=== PATIENT | female | born 1970 | race Caucasian/White ===

== ENCOUNTER → 2016-08-22 | Outpatient (CLI) | payer OTHER ==
[~2016-08-22] MED LIST: ARMO150T4 PO; ARMO250T5 PO; ATEN50TA8 PO; BACL10TA PO; DOXE50CA3 PO; FROV2.5T5 PO; HYDR-4079 PO; LEVOIUD; PANT1TAB48 PO; SPIR25TA PO; SUCR1TAB PO
== END | disposition home or self-care (01) ==
LOC: C.PAPS 12:58
PROVIDERS: ATTEND Obstetrics & Gynecology
DX: Z12.4 Encounter for screening for malignant neoplasm of cervix (principal)

== ENCOUNTER → 2016-09-07 | Outpatient (CLI) | payer OTHER ==
--- NOTE | 2016-09-11 13:33 | MAMMOGRAPHY REPORT ---
BILATERAL DIGITAL SCREENING MAMMOGRAM TOMOSYNTHESIS WITH CAD: 09/07/2016 CLINICAL HISTORY: Routine screening. Patient has no complaints. TECHNIQUE: Breast tomosynthesis in addition to standard 2D mammography was performed. Current study was also evaluated with a Computer Aided Detection (CAD) system. COMPARISON: Comparison is made to exam dated: 06/24/2014 mammogram - [facility]. BREAST COMPOSITION: The tissue of both breasts is extremely dense, which lowers the sensitivity of mammography. FINDINGS: No suspicious masses, calcifications, or areas of architectural distortion are noted in e ither breast. There has been no significant interval change compared to prior exams. Scattered bilat eral benign-appearing calcifications are not significantly changed. IMPRESSION: ACR BI-RADS CATEGORY 2: BENIGN There is no mammographic evidence of malignancy. A 1 year screening mammogram is recommended. The p atient will receive written notification of the results. Approximately 10% of breast cancers are not detected with mammography. A negative mammographic repor t should not delay biopsy if a clinically suggestive mass is present. Adalgisa Fischer M.D. ah/:09/08/2016 16:12:05 Box Maker Paperboard: [place], [facility] letter sent: Normal 1/2 BI-RADS Code: ACR BI-RADS Category 2: Benign
== END | disposition home or self-care (01) ==
LOC: C.MAMM 10:07
PROVIDERS: ATTEND Obstetrics & Gynecology
DX: Z12.31 Encounter for screening mammogram for malignant neoplasm of breast (principal)

== ENCOUNTER → 2016-11-16 | Outpatient (CLI) | payer OTHER ==
[2016-11-17 11:36] LABS: URINE APPEARANCE TURBID (CLEAR); URINE BILIRUBIN NEG (NEG); URINE COLOR YELLOW; URINE NITRITE NEG (NEG); URINE SPECIFIC GRAVITY 1.028 (1.000-1.030); UROBILINOGEN NEG (NEG)
[2016-11-17 11:39] LABS: MANUAL MICROSCOPIC REQUIRED? NO; REVIEW REQ? NO
--- NOTE | 2016-11-24 12:14 | CODING QUERY MEDICAL NECESSITY ---
CQSUPPORTING DIAGNOSIS NEEDED A supporting diagnosis is required for the test/procedure performed on this patient in order for us to be reimbursed by the patient's insurance. Please provide a supporting diagnosis for the following test/procedure listed below next to the test name along with your signature. *If there is no additional diagnosis for this patient that would support the following test/procedure please document that below next to the test/procedure. Test(s)/Procedure(s) that require a supporting diagnosis: DOS 11/16/16 URINE CULTURE Provider Signature: Date: Thank you [place] [email or web address] Once completed, please kindly fax back to [phone] For questions please call [phone]
== END | disposition home or self-care (01) ==
LOC: C.PAPS 11:02
PROVIDERS: ATTEND Family Medicine
DX: M54.5 Low back pain (principal)

== ENCOUNTER 2017-01-17 21:31 | Emergency (ER) | payer OTHER ==
[~2017-01-17] VITALS: Ht 160 cm; Wt 58.7 kg
[2017-01-17 21:35] VITALS: TEMP 36.5; Ht 160 cm; Wt 58.7 kg
[2017-01-17] MEDS ORDERED: LORAZEPAM 2 MG/ML 1 ML VIAL IV STA (22:48)
[2017-01-17] MEDS ORDERED: SODIUM CHLORIDE 0.9% 1000ML 1,000 ML IV STA (22:48)
[2017-01-17] MEDS ORDERED: ONDANSETRON INJ 2 MG/ML 2 ML VIAL IV STA (22:48)
--- NOTE | 2017-01-17 23:02 | EMERGENCY ROOM VISIT NOTE ---
History Report prepared by Ragini: Bernard Santiago Under the Supervision of: Dr. Nichol Osborn M.D. First contact with patient: 22:35 Chief Complaint: DIZZY Stated Complaint: DIZZY History of Present Illness The patient is a 46 year old female who presents to the Emergency Room with complaints of constant dizziness beginning prior to arrival. The patient states that when she closes her eye, her vision does not "shut off," and she continues to see things. She notes that she has had symptoms like this before. The patient reports that she is also lightheaded. She states that she is hypoglycemic and consumed a large amounts of glucose tablets prior to arrival. The patient's reports that her breath has been shorter and shallower. Source of History: patient Onset: prior to arrival Position: other (global) Quality: other (dizziness) Timing: constant Note: Associated symptoms: lightheadedness Review of Systems See HPI for pertinent positives & negatives. A total of 10 systems reviewed and were otherwise negative. Past Medical & Surgical Medical Problems: (1) fibramyalgia (2) gastric bypass surgery (3) Headache (4) Narcolepsy Family History Cancer Gallbladder disease Heart disease Hypertension Social History Smoking Status: Never Smoker (1 pack a day) Drug Use: none Marital Status: , in relationship Housing Status: lives with family Occupation Status: unemployed Current/Historical Medications Scheduled Armodafinil (Nuvigil), 150 MG PO WITH LUNCH Armodafinil (Nuvigil), 250 MG PO QAM Atenolol (Tenormin), 50 MG PO BID Baclofen (Lioresal), Unknown Dose PO TID Doxepin (Sinequan), 50 MG PO HS Levonorgestrel (Iud) (Mirena), 1 UD Pantoprazole (Protonix), 40 MG PO BID Spironolactone (Aldactone), 50 MG PO BID Scheduled PRN Frovatriptan Succinate (Frova), 2.5 MG PO UD PRN for HEADACHE Hydrocodone/Acetaminophen 10MG/325MG ([place] 10MG/325MG), 1 TAB PO QID PRN for Pain Sucralfate (Sucralfate), 1 GM PO ACHS PRN for GI Upset Allergies Coded Allergies: Azithromycin (Verified Allergy, Mild, 12/15/13) Sumatriptan (Verified Allergy, Mild, 12/10/13) Miconazole (Verified Allergy, Unknown, SWELLING, 04/07/15) Nortriptyline (Verified Allergy, Unknown, ?, 12/10/13) Venlafaxine (Unverified Adverse Reaction, Intermediate, GI SYMPTOMS, ) EYES DILATE Physical Exam Vital Signs Date Time Temp Pulse Resp B/P (MAP) Pulse Ox O2 Delivery O2 Flow Rate FiO2 01/18/17 00:56 71 14 104/58 99 01/17/17 23:41 63 16 109/70 100 Room Air 64 106/72 67 114/75 01/17/17 21:35 36.5 64 18 114/68 100 Room Air Physical Exam Vital signs reviewed. General: Well-appearing, in no significant distress. HEENT: No scleral icterus, PERRLA, neck supple. Atraumatic. Cardiovascular: Regular rate and rhythm, no extra sounds. Pulmonary: Clear to auscultation bilaterally, normal work of breathing. Abdomen: Soft, nontender, nondistended, positive bowel sounds. Musculoskeletal: Atraumatic, no peripheral edema. Neurologic: Patient awake alert and oriented x 3, full strength in all 4 extremities. Cranial nerves 2 through 12 grossly intact. Skin: Warm, dry, no rash Medical Decision & Procedures ER Provider Diagnostic Interpretation: CT results as stated below per my review and radiologist interpretation: CT HEAD: No acute intracranial hemorrhage. No evidence of intracranial mass, extra-axial fluid collection, or acute territorial infarct. Visualized paranasal sinuses and mastoid air cells are clear. Radiologist: Augie Curtis M.D. Study ready at 0030 and initial results transmitted at 0033. Laboratory Results 01/17/17 23:07 Red Blood Count 4.48, Mean Corpuscular Volume 89.7, Mean Corpuscular Hemoglobin 27.9, Mean Corpuscular Hemoglobin Concent 31.1, Mean Platelet Volume 9.3, Neutrophils (%) (Auto) 74.6, Lymphocytes (%) (Auto) 19.7, Monocytes (%) (Auto) 5.1, Eosinophils (%) (Auto) 0.3, Basophils (%) (Auto) 0.3, Neutrophils # (Auto) 5.45, Lymphocytes # (Auto) 1.44, Monocytes # (Auto) 0.37, Eosinophils # (Auto) 0.02, Basophils # (Auto) 0.02 01/17/17 23:07 Test 01/17/17 22:45 01/17/17 23:07 Urine Color YELLOW Urine Appearance CLOUDY (CLEAR) Urine pH 5.0 (4.5-7.5) Urine Specific [place] 1.023 (1.000-1.030) Urine Protein NEG (NEG) Urine Glucose (UA) NEG (NEG) Urine Ketones TRACE (NEG) Urine Occult Blood NEG (NEG) Urine Nitrite NEG (NEG) Urine Bilirubin NEG (NEG) Urine Urobilinogen NEG (NEG) Urine Leukocyte Esterase NEG (NEG) Urine WBC (Auto) 5-10 /hpf (0-5) Urine RBC (Auto) 0-4 /hpf (0-4) Urine Hyaline Casts (Auto) 0 /lpf (0-5) Urine Epithelial Cells (Auto) >30 /lpf (0-5) Urine Bacteria (Auto) NEG (NEG) Urine Renal Epithelial Cells /lpf (0-5) Urine Crystals CALCIUM OXALATE (NONE Urine Pathogenic Casts /lpf (0) Urine Mucus PRESENT (NONE PRSENT) White Blood Count 7.30 K/uL (4.8-10.8) Red Blood Count 4.48 M/uL (4.2-5.4) Hemoglobin 12.5 g/dL (12.0-16.0) Hematocrit 40.2 % (37-47) Mean Corpuscular Volume 89.7 fL (80-100) Mean Corpuscular Hemoglobin 27.9 pg (25-34) Mean Corpuscular Hemoglobin Concent 31.1 g/dl (32-36) Platelet Count 304 K/uL (130-400) Mean Platelet Volume 9.3 fL (7.4-10.4) Neutrophils (%) (Auto) 74.6 % Lymphocytes (%) (Auto) 19.7 % Monocytes (%) (Auto) 5.1 % Eosinophils (%) (Auto) 0.3 % Basophils (%) (Auto) 0.3 % Neutrophils # (Auto) 5.45 K/uL (1.4-6.5) Lymphocytes # (Auto) 1.44 K/uL (1.2-3.4) Monocytes # (Auto) 0.37 K/uL (0.11-0.59) Eosinophils # (Auto) 0.02 K/uL (0-0.5) Basophils # (Auto) 0.02 K/uL (0-0.2) RDW Standard Deviation 47.2 fL (36.4-46.3) RDW Coefficient of Variation 14.3 % (11.5-14.5) Immature Granulocyte % (Auto) 0.0 % Immature Granulocyte # (Auto) 0.00 K/uL (0.00-0.02) Anion Gap 9.0 mmol/L (3-11) Est Creatinine Clear Calc Drug Dose 45.7 ml/min Estimated GFR () 57.8 Estimated GFR (Non- 49.9 BUN/Creatinine Ratio 22.8 (10-20) Calcium Level 8.8 mg/dl (8.5-10.1) Magnesium Level 2.2 mg/dl (1.8-2.4) Total Bilirubin 0.4 mg/dl (0.2-1) Direct Bilirubin 0.1 mg/dl (0-0.2) Aspartate Amino Transf (AST/SGOT) 29 U/L (15-37) Alanine Aminotransferase (ALT/SGPT) 22 U/L (12-78) Alkaline Phosphatase 77 U/L (45-117) Total Protein 7.4 gm/dl (6.4-8.2) Albumin 3.9 gm/dl (3.4-5.0) Laboratory results per my review. Medications Administered Medications (Trade) Dose Ordered Sig/Arsh Route Start Time Stop Time Status Last Admin Dose Admin Sodium Chloride 1,000 ml @ 999 mls/hr Q1H1M STAT IV 01/17/17 22:48 01/17/17 23:48 DC 01/17/17 22:48 999 MLS/HR Lorazepam (Ativan Inj) 1 mg NOW STAT IV 01/17/17 22:48 01/17/17 22:51 DC 01/17/17 23:11 1 MG Ondansetron HCl (Zofran Inj) 4 mg NOW STAT IV 01/17/17 22:48 01/17/17 22:51 DC 01/17/17 23:11 4 MG ECG Indication: weakness Rate (beats per minute): 59 Rhythm: sinus bradycardia Findings: no acute ischemic change, no ectopy ED Course 2245: Past medical records reviewed. The patient was evaluated in room A03. A complete history and physical examination was performed. 2248: Ordered Zofran Inj 4mg IV, Ativan Inj 1mg IV, Sodium Chloride 1000 ml @ 999 mls/hr IV 0042: Upon reevaluation, the patient appeared to have improvement of her symptoms. I discussed findings with her. She verbalized agreement of the treatment plan. The patient was discharged home. Medical Decision Differential diagnosis: Etiologies such as benign positional vertigo, dehydration, hypovolemia, anemia, tumor, infection, hypoglycemia, electrolyte abnormalities, cardiac sources, intracerebral event, toxicologic, neurologic, as well as others were entertained. Medication Reconciliation: I attest that I have personally reviewed the patient' s current medication list. Blood Pressure Screening: Patient was found to have normal blood pressure on screening and does not require follow-up. This patient was evaluated and appeared to be in no significant distress. IV access was obtained and laboratory work was drawn. The patient was placed on the electronic device monitor and found to be in a normal sinus rhythm. Patient was hydrated with normal saline solution, given IV Ativan and Zofran. Patient seemed to have some improvement with the above medications. Laboratory work is consistent with a prerenal azotemia. She was informed of the findings. She was advised to increase the fluids in her diet. She will follow-up with her primary care physician and return to the ER for worsening of symptoms or any medical concerns. Impression Primary Impression: Dehydration Scribe Attestation The scribe's documentation has been prepared under my direction and personally reviewed by me in its entirety. I confirm that the note above accurately reflects all work, treatment, procedures, and medical decision making performed by me. Departure Information Dispostion Home / Self-Care Referrals Joanie Stewart DO (PCP) Forms HOME CARE DOCUMENTATION FORM, IMPORTANT VISIT INFORMATION Patient Instructions [facility] Additional Instructions Diagnosis: Dehydration Please drink plenty of clear fluids. Tylenol 650 mg every 6 hours as needed for pain. Follow-up with your physician this week for reevaluation and recheck of your kidney function. Avoid aspirin, Aleve, ibuprofen
[2017-01-17 23:08] LABS: URINE APPEARANCE CLOUDY (CLEAR); URINE BILIRUBIN NEG (NEG); URINE COLOR YELLOW; URINE EPITHELIAL CELL AUTO >30 /lpf (0-5); URINE NITRITE NEG (NEG); URINE SPECIFIC GRAVITY 1.023 (1.000-1.030); UROBILINOGEN NEG (NEG); ZZUR CULT IF INDIC CLEAN CATCH NO
[2017-01-17 23:11] LABS: MANUAL MICROSCOPIC REQUIRED? NO; REVIEW REQ? YES
[2017-01-17 23:18] LABS: BASO % 0.3 %; BASO ABS # 0.02 K/uL (0-0.2); COMPLETE YES; EOS % 0.3 %; HEMATOCRIT 40.2 % (37-47); LYMPH % 19.7 %; LYMPH ABS # 1.44 K/uL (1.2-3.4); MEAN CELL VOLUME 89.7 fL (80-100); MEAN CORPUSCULAR HEMOGLOBIN 27.9 pg (25-34); MEAN CORPUSCULAR HGB CONC 31.1 g/dl (32-36); MEAN PLATELET VOLUME 9.3 fL (7.4-10.4); MONO % 5.1 %; NEUT % 74.6 %; PLATELET COUNT 304 K/uL (130-400); RED BLOOD COUNT 4.48 M/uL (4.2-5.4)
[2017-01-17 23:23] LABS: URINE MUCUS PRESENT (NONE PRSENT)
[2017-01-17 23:36] LABS: BUN/CREATININE RATIO 22.8 (10-20); CALCIUM 8.8 mg/dl (8.5-10.1); CREATININE 1.3 mg/dl (0.60-1.20); MAGNESIUM 2.2 mg/dl (1.8-2.4); POTASSIUM 3.9 mmol/L (3.5-5.1)
[2017-01-18 00:56] VITALS: BP 104/58; PULSE 71; O2SAT 99
--- NOTE | 2017-01-18 06:49 | DIAGNOSTIC IMAGING REPORT ---
CT HEAD WITHOUT CONTRAST (CT) CLINICAL HISTORY: Dizziness, blurred vision, vertigo. COMPARISON STUDY: 07/09/2007 TECHNIQUE: Axial CT of the brain is performed from the vertex to the skull base. IV contrast was not administered for this examination. CT DOSE: 537.48 mGy.cm FINDINGS: No intra or extra-axial mass lesions are visualized. There is no CT evidence of acute cortical infarction. There is no evidence of midline shift. There is no acute hemorrhage. No calvarial fractures are visualized. There is no evidence of pathologic ventricular dilatation. There is no evidence of acute sinusitis IMPRESSION: Normal noncontrast head CT. Electronically signed by: Ari Ramirez M.D. 01/18/2017 6:47 AM Dictated Date/Time: 01/18/2017 6:46 AM
== END 2017-01-18 00:57 | disposition home or self-care (01) ==
LOC: C.EDB 21:32 → C.EDA 01-18 00:57
DX: E86.0 Dehydration (principal); R00.1 Bradycardia, unspecified; F17.200 Nicotine dependence, unspecified, uncomplicated; Z98.84 Bariatric surgery status; Z79.899 Other long term (current) drug therapy; Z88.1 Allergy status to other antibiotic agents; Z88.8 Allergy status to other drugs, medicaments and biological substances; Z80.9 Family history of malignant neoplasm, unspecified; Z83.79 Family history of other diseases of the digestive system; Z82.49 Family history of ischemic heart disease and other diseases of the circulatory system

== ENCOUNTER → 2017-01-22 | Outpatient (CLI) | payer OTHER ==
[2017-01-22 09:57] LABS: BLOOD UREA NITROGEN 20 mg/dl (7-18); BUN/CREATININE RATIO 24.2 (10-20); CARBON DIOXIDE 29 mmol/L (21-32); CHLORIDE 108 mmol/L (98-107); CREATININE 0.83 mg/dl (0.60-1.20); GLUCOSE 87 mg/dl (70-99); POTASSIUM 3.8 mmol/L (3.5-5.1); SODIUM 142 mmol/L (136-145)
[2017-01-22 10:05] LABS: CALCIUM 8.6 mg/dl (8.5-10.1)
== END | disposition home or self-care (01) ==
LOC: C.LAB 08:22
PROVIDERS: ATTEND Nurse Practitioner Adult Health
DX: I10 Essential (primary) hypertension (principal); R42 Dizziness and giddiness

== ENCOUNTER → 2017-03-14 | Outpatient (CLI) | payer OTHER ==
[2017-03-14 12:39] LABS: BLOOD UREA NITROGEN 17 mg/dl (7-18); BUN/CREATININE RATIO 19.4 (10-20); CALCIUM 9.2 mg/dl (8.5-10.1); CARBON DIOXIDE 30 mmol/L (21-32); CHLORIDE 107 mmol/L (98-107); CREATININE 0.85 mg/dl (0.60-1.20); GLUCOSE 88 mg/dl (70-99); PHOSPHORUS 2.9 mg/dl (2.5-4.9); POTASSIUM 3.8 mmol/L (3.5-5.1); SODIUM 141 mmol/L (136-145)
== END | disposition home or self-care (01) ==
LOC: C.LABPVFM 08:47
PROVIDERS: ATTEND Internal Medicine Nephrology
DX: K90.9 Intestinal malabsorption, unspecified (principal); N28.9 Disorder of kidney and ureter, unspecified; E26.9 Hyperaldosteronism, unspecified; E55.9 Vitamin D deficiency, unspecified

== ENCOUNTER → 2017-08-23 | Outpatient (CLI) | payer OTHER ==
[~2017-08-23] MED LIST changes: +LEVO1IUD2; -LEVOIUD; +PANT1TAB3 PO; -PANT1TAB48 PO
== END | disposition home or self-care (01) ==
LOC: C.PAPS 11:58
PROVIDERS: ATTEND Obstetrics & Gynecology
DX: Z01.419 Encounter for gynecological examination (general) (routine) without abnormal findings (principal)

== ENCOUNTER → 2017-10-26 | Outpatient (CLI) | payer OTHER ==
[~2017-10-26] VITALS: Ht 160 cm; Wt 62.0 kg
[2017-10-26 13:55] VITALS: BP 122/74; PULSE 66; Ht 160 cm; Wt 62.0 kg
[2017-10-26 16:32] LABS: BASO % 0.8 %; BASO ABS # 0.04 K/uL (0-0.2); EOS % 1.2 %; EOS ABS # 0.06 K/uL (0-0.5); HEMATOCRIT 37.5 % (37-47); LYMPH % 26.7 %; MEAN CELL VOLUME 87.4 fL (80-100); MEAN PLATELET VOLUME 10.2 fL (7.4-10.4); MONO ABS # 0.29 K/uL (0.11-0.59); NEUT % 65.3 %; NEUT ABS # 3.17 K/uL (1.4-6.5); PLATELET COUNT 293 K/uL (130-400); RED CELL DISTRIBUTION WIDTH CV 15.1 % (11.5-14.5); RED CELL DISTRIBUTION WIDTH SD 47.9 fL (36.4-46.3); WHITE BLOOD COUNT 4.86 K/uL (4.8-10.8)
== END | disposition home or self-care (01) ==
LOC: C.LABBC 13:24
PROVIDERS: ATTEND Internal Medicine Pulmonary Disease
DX: G47.419 Narcolepsy without cataplexy (principal); G47.00 Insomnia, unspecified; R53.82 Chronic fatigue, unspecified; E55.9 Vitamin D deficiency, unspecified; Z88.1 Allergy status to other antibiotic agents; Z88.8 Allergy status to other drugs, medicaments and biological substances

== ENCOUNTER 2017-12-17 11:18 | Emergency (ER) | payer OTHER ==
[~2017-12-17] VITALS: Ht 160 cm; Wt 60.0 kg
[2017-12-17 11:20] VITALS: TEMP 37; Ht 160 cm; Wt 60.0 kg
[2017-12-17] MEDS ORDERED: CYNI1000 SQ (11:37)
[2017-12-17] MEDS ORDERED: POTA40IN PO (11:37)
[2017-12-17] MEDS ORDERED: CHOL1TAB46 PO (11:37)
[2017-12-17] MEDS ORDERED: LISI-788 PO (11:37)
[2017-12-17] MEDS ORDERED: QUET1TAB34 PO (11:37)
[2017-12-17] MEDS ORDERED: FROV2.5T5 PO (11:38)
[2017-12-17 12:25] LABS: BASO % 0.6 %; BASO ABS # 0.03 K/uL (0-0.2); EOS % 1.8 %; EOS ABS # 0.09 K/uL (0-0.5); HEMATOCRIT 39.3 % (37-47); HEMOGLOBIN 12.8 g/dL (12.0-16.0); IG# 0.01 K/uL (0.00-0.02); LYMPH % 25.9 %; LYMPH ABS # 1.33 K/uL (1.2-3.4); MEAN CELL VOLUME 88.3 fL (80-100); MEAN CORPUSCULAR HEMOGLOBIN 28.8 pg (25-34); MEAN CORPUSCULAR HGB CONC 32.6 g/dl (32-36); MONO % 5.5 %; MONO ABS # 0.28 K/uL (0.11-0.59); NEUT ABS # 3.39 K/uL (1.4-6.5); PLATELET COUNT 329 K/uL (130-400); RED CELL DISTRIBUTION WIDTH CV 15.8 % (11.5-14.5); RED CELL DISTRIBUTION WIDTH SD 51.2 fL (36.4-46.3); WHITE BLOOD COUNT 5.13 K/uL (4.8-10.8)
[2017-12-17 12:33] LABS: PTT PATIENT 23.7 SECONDS (21.0-31.0)
[2017-12-17 12:42] LABS: CREATININE 1.31 mg/dl (0.60-1.20); POTASSIUM 4.1 mmol/L (3.5-5.1)
--- NOTE | 2017-12-17 12:47 | DIAGNOSTIC IMAGING REPORT ---
HEAD WITHOUT CONTRAST (CT) CLINICAL HISTORY: 47 years-old Female with dizzy eval for cva. Acute dizziness with strokelike symptoms TECHNIQUE: Multiple axial CT images of the head were obtained without contrast. A dose lowering technique was utilized adhering to the principles of ALARA. CT DOSE: 537.48 mGy.cm COMPARISON: CT head 01/18/2017. FINDINGS: No acute intracranial hemorrhage, midline shift, intracranial mass, hydrocephalus, territorial ischemia or abnormal extra-axial collection. The calvarium is intact. Partially imaged minimal mucosal thickening about the right maxillary sinus. Soft tissues and orbits are unremarkable. IMPRESSION: No acute intracranial abnormality. The above report was generated using voice recognition software. It may contain grammatical, syntax or spelling errors. Electronically signed by: Myron Chandler M.D. 12/17/2017 12:45 PM Dictated Date/Time: 12/17/2017 12:43 PM
[2017-12-17 12:52] LABS: TOTAL PROTEIN 7.9 gm/dl (6.4-8.2)
[2017-12-17] MEDS ORDERED: SODIUM CHLORIDE 0.9% 1000ML 1,000 ML IV STA (12:57)
[2017-12-17 14:25] VITALS: BP 120/66; PULSE 58; O2SAT 100
--- NOTE | 2017-12-17 15:47 | EMERGENCY ROOM VISIT NOTE ---
History Report prepared by Ragini: Dennis Angeles Under the Supervision of: Dr. Dagoberto Bradley M.D. First contact with patient: 12:02 Chief Complaint: DIZZY Stated Complaint: DIZZY/ FLASHING VISON History of Present Illness The patient is a 47 year old female who presents to the Emergency Room with complaints of constant dizziness beginning yesterday. The patient states that she woke up yesterday with muscle twitching in her arms and visual complaints. She reports that she feels as though her vision is a strobe light. She states that she does not see flashes of light but that her vision is unusual. She is having a hard time explaining it. The patient states that her vision goes in and out of focus. She notes that she was seen in January of 2017 for dizziness and visual complaints. She reports that she has had visual complaints for a long while. The patient states that she saw her eye doctor her visit and notes that nothing was found to be remarkable other than two floaters in her field of vision. She reports that she is also experiencing numbness in her temples and tongue. The patient states that she woke up twice last night with nausea, and vomited up stomach acid twice. She notes that she is also feeling weak and lightheaded, and believes that she might feel some vertigo when she sits up. She denies any diarrhea, abdominal pain, CP, and SOB. She reports that she saw her PCP this morning and was sent to the emergency department for labs and a CT. The patient states that she has a history of a hiatal hernia, gastric bypass , fibromyalgia, migraines, and narcolepsy. She notes that she is on medication for her narcolepsy. Source of History: patient Onset: yesterday Position: head Quality: other (dizziness) Timing: constant Modifying Factors (Worsening): other (Standing) Associated Symptoms: + nausea, + vomiting (vomited stomach acid twice), + weakness, + numbness (in her temples and tongue), No chest pain, No SOB, No abdominal pain, No diarrhea Note: The patient also complains of muscle twitching in her arms, a "flickering strobe " when she closes her eyes, vision that goes in and out of focus, lightheadedness, and occasional vertigo when she sits up. Review of Systems See HPI for pertinent positives & negatives. A total of 10 systems reviewed and were otherwise negative. Past Medical & Surgical Medical Problems: (1) fibramyalgia (2) gastric bypass surgery (3) Headache (4) Hiatal hernia (5) Migraines (6) Narcolepsy Family History Cancer Gallbladder disease Heart disease Hypertension Social History Smoking Status: Never Smoker Drug Use: none Marital Status: , in relationship Housing Status: lives with family Occupation Status: unemployed Current/Historical Medications Scheduled Armodafinil (Nuvigil), 150 MG PO WITH LUNCH Armodafinil (Nuvigil), 250 MG PO QAM Atenolol (Tenormin), 50 MG PO BID Cholecalciferol (Vitamin D3), 5,000 UNITS PO DAILY Cyanocobalamin (Cyanocobalamin), 1 DOSE SQ MONTHLY Levonorgestrel (Iud) (Mirena), 1 UD Lisinopril/Hctz (Zestoretic 20MG/25MG), 1 TAB PO DAILY Pantoprazole (Protonix), 40 MG PO BID Potassium Chloride (Potassium Chloride), 15 ML PO DAILY Quetiapine Fumarate (Seroquel), 100 MG PO HS Scheduled PRN Baclofen (Lioresal), 10 MG PO TID PRN for Muscle Spasms Frovatriptan Succinate (Frova), 2.5 MG PO UD PRN for HEADACHE Hydrocodone/Acetaminophen 10MG/325MG ([place] 10MG/325MG), 1 TAB PO QID PRN for Pain Allergies Coded Allergies: Azithromycin (Verified Allergy, Mild, 12/17/17) Sumatriptan (Verified Allergy, Mild, 12/17/17) Miconazole (Verified Allergy, Unknown, SWELLING, 12/17/17) Nortriptyline (Verified Allergy, Unknown, ?, 12/17/17) Venlafaxine (Unverified Adverse Reaction, Intermediate, GI SYMPTOMS, ) EYES DILATE Physical Exam Vital Signs Date Time Temp Pulse Resp B/P (MAP) Pulse Ox O2 Delivery O2 Flow Rate FiO2 12/17/17 14:25 58 18 120/66 100 12/17/17 12:32 60 108/64 55 116/72 66 106/72 12/17/17 11:20 37.0 69 16 120/76 96 Room Air Physical Exam Constitutional: Vital signs reviewed. Eyes: Pupils are equal round reactive to light. Conjunctiva are noninjected. Limited funduscopic exam shows papal edema and no acute abnormality. ENT: Pharynx is clear without erythema or exudate. Mucous membranes are moist. Neck supple without meningeal signs. Respiratory: Clear to auscultation bilaterally. Breath sounds are equal bilaterally. Cardiovascular: Regular rate and rhythm. No rubs or gallops. GI: Soft, nondistended and nontender. Bowel sounds are present. Musculoskeletal: No peripheral edema. No lower extremity tenderness. Integumentary: No cyanosis. Neurological: The patient is awake and alert. Cranial nerves II-XII are intact. Motor is 5 out of 5 all extremities. Sensation is intact to light touch all extremities. Normal speech. No pronator drift. No limb ataxia. Visual luu intact by confrontation. No significant tremors are noted. Psychiatric: Normal affect. Medical Decision & Procedures ER Provider Diagnostic Interpretation: Radiology results as stated below per my review and the radiologist's interpretation: HEAD WITHOUT CONTRAST (CT) CLINICAL HISTORY: 47 years-old Female with dizzy eval for cva. Acute dizziness with strokelike symptoms TECHNIQUE: Multiple axial CT images of the head were obtained without contrast. A dose lowering technique was utilized adhering to the principles of ALARA. CT DOSE: 537.48 mGy.cm COMPARISON: CT head 01/18/2017. FINDINGS: No acute intracranial hemorrhage, midline shift, intracranial mass, hydrocephalus, territorial ischemia or abnormal extra-axial collection. The calvarium is intact. Partially imaged minimal mucosal thickening about the right maxillary sinus. Soft tissues and orbits are unremarkable. IMPRESSION: No acute intracranial abnormality. The above report was generated using voice recognition software. It may contain grammatical, syntax or spelling errors. Electronically signed by: Myron Chandler M.D. 12/17/2017 12:45 PM Laboratory Results 12/17/17 11:40 Red Blood Count 4.45, Mean Corpuscular Volume 88.3, Mean Corpuscular Hemoglobin 28.8, Mean Corpuscular Hemoglobin Concent 32.6, Mean Platelet Volume 10.0, Neutrophils (%) (Auto) 66.0, Lymphocytes (%) (Auto) 25.9, Monocytes (%) (Auto) 5.5, Eosinophils (%) (Auto) 1.8, Basophils (%) (Auto) 0.6, Neutrophils # (Auto) 3.39, Lymphocytes # (Auto) 1.33, Monocytes # (Auto) 0.28, Eosinophils # (Auto) 0.09, Basophils # (Auto) 0.03 12/17/17 11:40 Test 12/17/17 11:40 12/17/17 12:36 White Blood Count 5.13 K/uL (4.8-10.8) Red Blood Count 4.45 M/uL (4.2-5.4) Hemoglobin 12.8 g/dL (12.0-16.0) Hematocrit 39.3 % (37-47) Mean Corpuscular Volume 88.3 fL (80-100) Mean Corpuscular Hemoglobin 28.8 pg (25-34) Mean Corpuscular Hemoglobin Concent 32.6 g/dl (32-36) Platelet Count 329 K/uL (130-400) Mean Platelet Volume 10.0 fL (7.4-10.4) Neutrophils (%) (Auto) 66.0 % Lymphocytes (%) (Auto) 25.9 % Monocytes (%) (Auto) 5.5 % Eosinophils (%) (Auto) 1.8 % Basophils (%) (Auto) 0.6 % Neutrophils # (Auto) 3.39 K/uL (1.4-6.5) Lymphocytes # (Auto) 1.33 K/uL (1.2-3.4) Monocytes # (Auto) 0.28 K/uL (0.11-0.59) Eosinophils # (Auto) 0.09 K/uL (0-0.5) Basophils # (Auto) 0.03 K/uL (0-0.2) RDW Standard Deviation 51.2 fL (36.4-46.3) RDW Coefficient of Variation 15.8 % (11.5-14.5) Immature Granulocyte % (Auto) 0.2 % Immature Granulocyte # (Auto) 0.01 K/uL (0.00-0.02) Prothrombin Time 10.0 SECONDS (9.0-12.0) Prothromb Time International Ratio 1.0 (0.9-1.1) Activated Partial Thromboplast Time 23.7 SECONDS (21.0-31.0) Partial Thromboplastin Ratio 0.9 Anion Gap 4.0 mmol/L (3-11) Est Creatinine Clear Calc Drug Dose 44.8 ml/min Estimated GFR () 56.8 Estimated GFR (Non- 49.0 BUN/Creatinine Ratio 22.4 (10-20) Calcium Level 9.0 mg/dl (8.5-10.1) Magnesium Level 2.4 mg/dl (1.8-2.4) Total Bilirubin 0.3 mg/dl (0.2-1) Direct Bilirubin 0.1 mg/dl (0-0.2) Aspartate Amino Transf (AST/SGOT) 26 U/L (15-37) Alanine Aminotransferase (ALT/SGPT) 17 U/L (12-78) Alkaline Phosphatase 84 U/L (45-117) Total Protein 7.9 gm/dl (6.4-8.2) Albumin 4.0 gm/dl (3.4-5.0) Thyroid Stimulating Hormone (TSH) 0.621 uIu/ml (0.300-4.500) Free Thyroxine 0.81 ng/dl (0.80-1.60) Urine Color YELLOW Urine Appearance CLEAR (CLEAR) Urine pH 5.0 (4.5-7.5) Urine Specific [place] 1.020 (1.000-1.030) Urine Protein NEG (NEG) Urine Glucose (UA) NEG (NEG) Urine Ketones NEG (NEG) Urine Occult Blood NEG (NEG) Urine Nitrite NEG (NEG) Urine Bilirubin NEG (NEG) Urine Urobilinogen NEG (NEG) Urine Leukocyte Esterase NEG (NEG) Urine Test NEG (NEG) Laboratory results as reviewed by me. Medications Administered Medications (Trade) Dose Ordered Sig/Arsh Route Start Time Stop Time Status Last Admin Dose Admin Sodium Chloride 1,000 ml @ 999 mls/hr Q1H1M STAT IV 12/17/17 12:57 12/17/17 13:57 DC 12/17/17 12:57 999 MLS/HR ECG Per My Interpretation Indication: other (lightheadedness) Rate (beats per minute): 60 Rhythm: normal sinus Findings: other (No ST elevation, no PVCs) ED Course 1207: The patient was evaluated in room A10. A complete history and physical exam was performed. 1257: Sodium Chloride 1000 ml @ 999 mls/hr IV 1306: I reevaluated and updated the patient. We discussed test results and a follow up. She states that she can see Dr. Trujillo of neurology as well as an eye doctor. 1407: Upon reevaluation, the patient appeared to have improvement of her symptoms. I discussed tonight's findings with her. She verbalized agreement of the treatment plan. The patient was discharged home. 1418: I reevaluated and updated the patient. She requested to talk to me. The patient states that she does not feel any better. I explained to her that it could take some time for her to feel better and recommended to call her doctor, who knows her well, for advice. There was no indication for hospitalization. Medical Decision This is a 47-year-old female who presents with lightheadedness and visual complaints. Differential diagnosis includes dehydration, orthostatic hypotension, metabolic derangement, anemia, intracranial mass. I did perform a limited focused review of portions of the patient's old chart on the electronic medical record. The patient was last seen in January of 2017 for dizziness and visual complaints. At that time, she noted that she has had similar problems in the past. Her CT head was unremarkable, and she was treated with fluids, Ativan , and Zofran. I did evaluate the patient as noted above. The patient is presenting with dizziness which she describes as lightheadedness. She also has a strokelike quality to her vision. She has normal funduscopic examination. She has normal visual luu tested by confrontation. Her visual acuity is 20/20 in both eyes. She has had the symptoms in the past and has been seen by an eye doctor for them. She states she has been lightheaded since yesterday. She states is worse when she stands up. IV access was established. I did treat her with normal saline IV. I did order and personally review the patient's 12-lead EKG as described above. I did order and review the patient's blood work as noted in the electronic medical record. Her creatinine is elevated at 1.3 consistent with dehydration. I did order a CT of the head. I did review the images myself as well as the radiology report as described above. There is no evidence of acute intracranial abnormality. I did discuss the test results with the patient. I did recommend that she follow-up closely with her neurologist as well as her eye doctor. She was also advised to follow-up closely with her regular physician and call him today. She was discharged in good condition. She was also advised to have her doctor recheck her creatinine. Medication Reconcilliation Current Medication List: was personally reviewed by me Blood Pressure Screening Patient's blood pressure: Normal blood pressure Blood pressure disposition: Did not require urgent referral Impression Primary Impression: Dehydration Additional Impressions: Visual complaint Tremor Scribe Attestation The scribe's documentation has been prepared under my direct and personally reviewed by me in its entirety. I confirm that the note above accurately reflects all work, treatment, procedures, and medical decision making performed by me. Departure Information Dispostion Home / Self-Care Referrals Juan J Hart III, CRNP (PCP) Forms HOME CARE DOCUMENTATION FORM, IMPORTANT VISIT INFORMATION Patient Instructions My [facility] Additional Instructions You have been examined and treated today on an emergency basis only. This is not a substitute for, or an effort to provide, complete comprehensive medical care. It is impossible to recognize and treat all injuries or illnesses in a single emergency department visit. It is therefore important that you follow up closely with your physician, eye doctor and neurologist. Call as soon as possible for an appointment. Return for worsening symptoms or if you develop visual loss, fever, numbness or weakness on one side of your body, difficulties with your speech or walking, or any other concerning symptoms. Have your doctor recheck your creatinine which was elevated at 1.3 today. Problem Qualifiers
== END 2017-12-17 14:26 | disposition home or self-care (01) ==
LOC: C.EDB 11:19 → C.EDA 14:26
DX: E86.0 Dehydration (principal); H53.9 Unspecified visual disturbance; R25.1 Tremor, unspecified; Z98.84 Bariatric surgery status; Z82.49 Family history of ischemic heart disease and other diseases of the circulatory system; G47.419 Narcolepsy without cataplexy; Z79.899 Other long term (current) drug therapy; Z88.1 Allergy status to other antibiotic agents; Z88.8 Allergy status to other drugs, medicaments and biological substances

== ENCOUNTER → 2018-02-27 | Outpatient (CLI) | payer OTHER ==
[~2018-02-27] MED LIST changes: +CHOL1TAB46 PO; +CYNI1000 SQ; -DOXE50CA3 PO; +GADAVIST IV PRN; +LISI-788 PO; +POTA40IN PO; +QUET1TAB34 PO; -SPIR25TA PO; -SUCR1TAB PO
--- NOTE | 2018-02-27 15:09 | DIAGNOSTIC IMAGING REPORT ---
BRAIN COMBO HISTORY: 47 years-old Female MEMORY LOSS, DIZZINESS acute memory loss with headache, dizziness and visual disturbances COMPARISON: Head CT 12/17/2017, brain MRI 07/15/2014 TECHNIQUE: Multiplanar multisequence MRI of the brain was obtained both with and without the use of 6 mL Gadavist FINDINGS: Large field view armoring machine operator localizer images demonstrate no gross abnormality. There is no restricted diffusion to suggest acute or subacute infarct. Midline structures including the corpus callosum, brainstem, optic chiasm, pituitary and pineal glands appear unremarkable on the sagittal T1 series. 4 mm pineal gland cyst. No cerebellar tonsillar herniation. No acute intracranial hemorrhage, midline shift, abnormal extra-axial collection, hydrocephalus or intracranial mass. Mildly increased T2/FLAIR prolongation about the periventricular white matter appears unchanged and may reflect mild chronic microvascular ischemic changes. There is no abnormal intra-axial or extra-axial enhancement identified. The major flow voids appear patent. The orbits are symmetric and within normal limits. Polypoid mucosal thickening of the right maxillary sinus. The skull and soft tissues are unremarkable. IMPRESSION: 1. No acute intracranial abnormality. 2. No abnormal enhancement. 3. Polypoid mucosal disease of the right maxillary sinus. The above report was generated using voice recognition software. It may contain grammatical, syntax or spelling errors. Electronically signed by: Myron Chandler M.D. 02/27/2018 3:08 PM Dictated Date/Time: 02/27/2018 2:59 PM
== END | disposition home or self-care (01) ==
LOC: C.MRIBC 13:46
PROVIDERS: ATTEND Psychiatry & Neurology Neurology
DX: H43.392 Other vitreous opacities, left eye (principal); I67.82 Cerebral ischemia; R42 Dizziness and giddiness; R41.3 Other amnesia; R20.2 Paresthesia of skin; R51 Headache; J33.1 Polypoid sinus degeneration

== ENCOUNTER → 2018-03-08 | Outpatient (CLI) | payer OTHER ==
[~2018-03-08] MED LIST changes: -GADAVIST IV PRN
[2018-03-08 17:44] LABS: HEMOGLOBIN 11.4 g/dL (12.0-16.0); MEAN CELL VOLUME 96.7 fL (80-100); MEAN CORPUSCULAR HEMOGLOBIN 31.5 pg (25-34); MEAN CORPUSCULAR HGB CONC 32.6 g/dl (32-36); MEAN PLATELET VOLUME 9.5 fL (7.4-10.4); PLATELET COUNT 273 K/uL (130-400); RED CELL DISTRIBUTION WIDTH CV 13.6 % (11.5-14.5); RED CELL DISTRIBUTION WIDTH SD 48.4 fL (36.4-46.3); WHITE BLOOD COUNT 4.87 K/uL (4.8-10.8)
[2018-03-08 18:12] LABS: BLOOD UREA NITROGEN 19 mg/dl (7-18); CALCIUM 8.8 mg/dl (8.5-10.1); CARBON DIOXIDE 32 mmol/L (21-32); CREATININE 1.02 mg/dl (0.60-1.20); GLUCOSE 85 mg/dl (70-99); POTASSIUM 3.9 mmol/L (3.5-5.1); SODIUM 137 mmol/L (136-145)
== END | disposition home or self-care (01) ==
LOC: C.LAB1850 17:09
PROVIDERS: ATTEND Nurse Practitioner Family
DX: E87.6 Hypokalemia (principal); R42 Dizziness and giddiness

== ENCOUNTER → 2018-03-18 | Outpatient (CLI) | payer OTHER | END | disposition home or self-care (01) | LOC: C.LABPVFM 07:24 | PROVIDERS: ATTEND Nurse Practitioner Family | DX: R42 Dizziness and giddiness (principal); M62.81 Muscle weakness (generalized) ==